=== PATIENT | male | born 1990 | race Caucasian/White ===

== ENCOUNTER 2025-03-03 13:31 | Emergency (ER) | payer MEDICAID, SELFPAY ==
[2025-03-03 13:40] VITALS: BP 130/78; PULSE 103; RESP 18; TEMP 36.9; O2SAT 100
--- NOTE | 2025-03-03 13:48 | XR_ITS ---
Examination: CT abdomen with intravenous contrast CT pelvis with intravenous contrast 2-D coronal reconstructions 2-D sagittal reconstructions Date and time of exam: March 03, 2025, 1616 hours INDICATIONS: Lower abdominal pain and rectal bleeding today. CTDI: vol (mGy) 14.2 DLP: (mGycm) 579 Technique: Multiple axial sections of the abdomen and pelvis have been obtained. 64 slice high-resolution scanner used. 3 mm axial sections have been obtained, post intravenous injection 60 cc [id number] 2-D sagittal, coronal reconstructions obtained. Low dose protocols were performed. One or more of the following dose reduction techniques were used; automated exposure control, adjustment of the mA and/or KV according to patient size, use of iterative reconstruction technique. Findings: No focal liver or splenic lesions No gallstones No pancreatic or adrenal mass 2 mm upper pole left renal calculus, no hydronephrosis or ureteral calculi Aorta normal size The appendix is mildly thickened but no periappendiceal inflammatory changes definitely identified No bowel obstruction Scattered colonic diverticulosis, no diverticulitis Rectal wall is not thickened Normal seminal vesicles No prostatomegaly Contracted urinary bladder IMPRESSION: 2 mm nonobstructing upper pole left renal calculus The appendix is mildly thickened but no periappendiceal inflammatory change, the appearance should be clinically correlated Scattered colonic diverticulosis, no diverticulitis No nonspecific colitis or enteritis pattern No rectal wall thickening depicted L5-S1 7 mm left paracentral disc bulge displacing the left S1 nerve root Bladder is contracted significantly on this study
--- NOTE | 2025-03-03 13:51 | XR_ITS ---
EXAMINATION: PA lateral chest 2 views TECHNIQUE: Upright PA lateral chest 2 views Date and time: March 03, 2025, 1406 hours INDICATIONS: Blood in the stool today, history of cancer FINDINGS: Normal heart size Lungs are clear. Intact osseous structures IMPRESSION: No active disease
--- NOTE | 2025-03-03 13:56 | EDNOTE_ITS ---
ED General RME/HPI General Chief complaint: General Adult/Misc Complain Stated complaint: BLOOD IN STOOL THIS AM Time Seen by Provider: 03/03/25 13:36 Arrival date/time: 03/03/25 13:31 Limitations: no limitations RME / HPI RME / HPI narrative: 34-year-old male here for abdominal cramping and rectal bleeding since yesterday worse this am. Reports about a week ago had constipation but does not think this is related to that or declined history of hemorrhoids. Reports he is concerned given history of bladder cancer. States he has been in remission. No significant weight loss or fever. No history of abdominal surgery. Of note has secondary complaint of right dental infection. States unable to go to the dentist at this time. Patient states hopes he does not need to be admitted but if has to go home requesting antibiotic for his tooth. Related Data Home Medications ?Medication ?Instructions ?Recorded ?Confirmed tramadol 50 mg tablet (Ultram) 50 mg PO Q4HR PRN HEADA CHASIDY #0 tabs 04/24/14 Previous Rx's ?Medication ?Instructions ?Recorded IBU 800 mg tablet (ibuprofen) 800 mg PO Q6H PRN pain # 30 tabs 02/18/19 promethazine-DM 6.25 mg-15 mg/5 mL 5 ml PO Q6H #240 mL 02/18/19 oral syrup pseudoephedrine HCl 30 mg tablet 30 mg PO Q12HR #14 ta bs 02/18/19 (Sudafed) penicillin V potassium 500 mg 500 mg PO TID 10 days #3 0 tabs 03/03/25 tablet tamsulosin 0.4 mg capsule 0.4 mg PO QDAY #14 caps 10/19 tramadol 50 mg tablet 50 mg PO BID pain 7 days #14 tabs 03/03/25 Allergies Allergy/AdvReac Type Severity Reaction Status Date / Time acetaminophen (From [place]) Allergy Intermediate ITCH Verified 03/03/25 13:34 hydrocodone (From [place]) Allergy Intermediate ITCH Verified 03/03/25 13:34 Review of Systems Review of Systems Systems Reviewed: All systems reviewed, normal except as documented Constitutional Constitutional: Denies fever(s) ENT Ears, Nose, Mouth, and Throat: Reports as per HPI Gastrointestinal Gastrointestinal: Reports as per HPI ED Exam General Limitations: Present no limitations General appearance: Present alert and in no apparent distress Head Head exam: Present atraumatic Eye Eye exam: Present normal appearance, PERRL and EOMI ENT ENT exam: Present mucous membranes moist, TM's normal bilaterally and other (Poor dentition right upper premolar with obvious dental caries no periapical abscess) Neck Neck exam: Present normal inspection, full ROM and trachea midline Chest Chest inspection: Present normal inspection and symmetric chest wall rise Respiratory Respiratory exam: Present normal lung sounds bilaterally Cardiovascular Cardiovascular exam: Present regular rate, normal rhythm and normal heart sounds Abdominal Exam Abdominal exam: Present soft, tenderness (Left lower quadrant tender and suprapubic area, refused rectal exam) and normal bowel sounds Extremities Exam Extremities exam: Present normal inspection and full ROM Back Exam Back exam: Present normal inspection and full ROM Neurological Exam Neurological exam: Present alert, oriented X3 and CN II-XII intact Psychiatric Psychiatric exam: Present normal affect and normal mood Skin Skin exam: Present warm, dry, intact and normal color Course Quality Measures none Orders Category Date Time Status CT Screening NOW Care 03/03/25 13:48 Active IV [Insert IV] NOW Care 03/03/25 13:[address] abdomen pelvis w con Stat Exams 03/03/25 13:48 Completed XR chest 2V Stat Exams 03/03/25 13:51 Completed CBC Stat Lab 03/03/25 14:05 Completed CMP [Comprehensive Metabolic Panel] Stat Lab 03/03/25 14:25 Completed Drug Screen,Urine Stat Lab 03/03/25 14:17 Completed Lipase Stat Lab 03/03/25 14:25 Completed UA [Urinalysis] Stat Lab 03/03/25 14:17 Completed traMADol HCL [Ultram] Med 03/03/25 13:56 Discontinued 50 mg PO X1 ONE Vital Signs Vital signs: Vital Signs Temperature 98.4 F 03/03/25 13:40 Pulse Rate 103 H 03/03/25 13:40 Respiratory Rate 18 03/03/25 13:40 Blood Pressure 130/78 03/03/25 13:40 Pulse Oximetry (%) 100 03/03/25 13:40 Oxygen Delivery Method Room Air 03/03/25 13:40 Discharge Plan Plan Patient Disposition: HOME (Self Care) Discharge Disposition comment: f/u with pcp in 2-3days Prescriptions/Referrals Prescriptions/Med Rec: New tramadol 50 mg tablet 50 mg PO BID 7 Days Qty: 14 0RF penicillin V potassium 500 mg tablet 500 mg PO TID 10 Days Qty: 30 0RF tamsulosin 0.4 mg capsule 0.4 mg PO QDAY Qty: 14 0RF No Action tramadol [Ultram] 50 MG tablet 50 mg PO Q4HR PRN (Reason: HEADACHE) Qty: 0 Patient Comments: FOR PAIN, NOT TO EXCEED 8 TABS IN 24 HRS promethazine-DM 6.25-15 mg/5 mL syrup 5 ml PO Q6H Qty: 240 0RF ibuprofen [IBU] 800 mg tablet 800 mg PO Q6H PRN (Reason: pain) Qty: 30 0RF pseudoephedrine HCl [Sudafed] 30 mg tablet 30 mg PO Q12HR Qty: 14 0RF Referrals: No Primary/Family,Physician [Primary Care Provider] - In 1 week Problem List Clinical Impression: Dental caries, Diverticulosis, Kidney stone on left side, Pancreatitis Patient/Caregiver Discharge Instructions Education Materials: ED Dental Cavity, ED Kidney Stone w/ Colic, ED Diverticulosis Print Language: Serbian Stand Alone Forms: Yulisa Award Info., Patient Portal Info Letter PA/GEOMORPHOLOGIST Supervising Physician PA/GEOMORPHOLOGIST Supervising Physician: Dr. Radha BRISENO Clinical Information Provided by: patient Medical Records reviewed [facility] Meds/Rx considered, not ordered describe: All meds considered were prescribed other than rectal suppositories for likely hemorrhoids as they are [id number] Labs/Rad/Tests considered, not ordered Describe: All imaging considered was ordered Chronic Illness/Social Conditions Explain: History of cancer in the past, blood pressure recurrence can cause abdominal pain Labs Lab(s) Interpretation(s): WBCs 12.9, CMP within normal limits, lipase of 104 however not tripled the normal suggestive of mild pancreatitis but not warranting admission UA with hematuria noted Imaging Imaging Interpretation(s): Chest x-ray normal CT abdomen pelvis with contrast noted diverticulosis no-itis, left 2 mm stone No masses or signs of recurrent bladder cancer Medication Administration(s) Medication Administration History Discontinued Medications Tramadol HCl (Tramadol Hcl 50 Mg Tablet) 50 mg PO X1 ONE Stop: 03/03/25 13:57 Last Admin: 03/03/25 14:06 Dose: 50 mg Documented By: ROSALIA Diagnosis Differential Diagnosis ED Complaint MDM: Intra-abdominal mass, pancreatitis, colon cancer, hemorrhoids Diagnoses ruled out and/or further discussions: Diverticulosis Kidney stone Pancreatitis Dental caries
[2025-03-03 14:15] LABS: Basophils # (Auto) 0.1 Thou/mm3 (0.0-0.2); Basophils % (Auto) 1 % (0-2.5); Eosinophils # (Auto) 0.2 Thou/mm3 (0.0-0.5); Eosinophils % (Auto) 2 % (0-10); Hematocrit 44.6 % (41.0-53.0); Hemoglobin 15.3 g/dL (13.5-16.0); Immature Granulocytes Auto 0.07 Thou/mm3 (0.00-0.00); Lymphocytes # (Auto) 2.7 Thou/mm3 (1.0-4.8); Lymphocytes % (Auto) 21 % (10-50); Mean Corpuscular HGB Conc 34.3 g/dl (31.0-37.0); Mean Corpuscular Hemoglobin 29.1 pg (25.0-35.0); Mean Corpuscular Volume 85 fL (80-100); Monocytes # (Auto) 0.7 Thou/mm3 (0.0-0.8); Monocytes % (Auto) 6 % (0-12); Neutrophils # (Auto) 9.1 Thou/mm3 (1.8-7.7); Neutrophils % (Auto) 71 % (37-80); Nucleated Red Blood Cell # 0.00 Thou/mm3 (0.00-0.00); Nucleated Red Blood Cell % 0 /100 WBC (0); Platelet Count 266 Thou/mm3 (140-440); RDW Standard Deviation 39.8 fL (35.1-43.9); Red Blood Count 5.25 Miln/mm3 (4.50-5.90); White Blood Count 12.9 Thou/mm3 (3.8-10.6)
[2025-03-03 14:32] LABS: Collection Type, Urine Clean Catch; Squamous Epithelial Cell,Urine 0 /hpf (0-5)
[2025-03-03 14:40] LABS: Bilirubin,Urine Negative (Negative); Blood,Urine Negative (Negative); Clarity,Urine Clear (Clear/Hazy); Color,Urine Lt-Yellow (Lt Yel-Yel); Glucose, Urine Negative (Negative); Ketones,Urine Negative (Negative); Leukocyte Esterase,Urine Negative (Negative); Nitrite,Urine Negative (Negative); PH,Urine 6.5 (5.0-7.0); Protein,Urine Negative (Neg - Trace); RBC,Urine 1 /hpf (0-3); Specific Gravity,Urine 1.023 (1.001-1.035); Urobilinogen,Urine Negative mg/dL (0.0-1.0); WBC,Urine 1 /hpf (0-5)
[2025-03-03 14:53] LABS: Alanine Aminotransferase 19 U/L (10-49); Albumin, Serum 4.7 gm/dL (3.5-5.0); Albumin/Globulin Ratio 1.6 (1.2-2.2); Alkaline Phosphatase 85 U/L (46-116); Anion Gap 9 (7-16); Aspartate Amino Transferase 16 U/L (0-34); BUN/Creatinine Ratio 14 Ratio (12-20); Bilirubin,Total 0.4 mg/dL (0.3-1.2); Blood Urea Nitrogen 15 mg/dL (9-23); Calcium 9.3 mg/dL (8.3-10.6); Calcium (Corrected) 9.3 mg/dL (8.5-10.1); Carbon Dioxide 28.5 mMol/L (20.0-31.0); Chloride 108 mMol/L (98-107); Creatinine (Component) 1.1 mg/dL (0.6-1.3); Globulin 2.9 gm/dL (2.3-3.5); Glucose 101 mg/dL (74-106); Lipase 104 U/L (12-53); Osmolality,Calculated 289 (275-295); Potassium 4.4 mMol/L (3.4-5.1); Sodium 145 mMol/L (136-145); Total Protein 7.6 gm/dL (5.7-8.2); eGFR > 60 See Note
[2025-03-03 15:32] LABS: Amphetamine/Methamp Scrn,U Negative (Negative); Barbiturate Screen,Urine Negative (Negative); Benzodiazepines Screen,Urine Negative (Negative); Benzoylecgonine Screen, Ur Negative (Negative); Fentanyl Screen,Urine Negative (Negative); Opiate Screen,Urine Negative (Negative); THC Screen,Urine Positive (Negative)
[2025-03-03 16:01] VITALS: BP 126/82; PULSE 87; RESP 18; TEMP 36.8; O2SAT 99
== END 2025-03-03 17:58 | disposition home or self-care (01) ==
PROVIDERS: Physician Assistant; Emergency Provider Emergency Medicine
DX: K57.31 Diverticulosis of large intestine without perforation or abscess with bleeding (principal); K85.90 Acute pancreatitis without necrosis or infection, unspecified; N20.0 Calculus of kidney; K02.9 Dental caries, unspecified
CPT/HCPCS: 36415; 71046; 74177; 80053; 80307; 81001; 83690; 85025; 99283; A4649; Q9967; A9270